=== PATIENT | female | born 1965 | race African-American/Black ===

== ENCOUNTER → 2018-01-27 | Outpatient (CLI) | payer OTHER ==
--- NOTE | 2018-01-27 14:45 | RAD ---
DATE: 01/27/2018 EXAM: DIGITAL SCREEN BILAT W/CAD HISTORY: Routine screening COMPARISON: 12/17/2013 This study was interpreted with the benefit of Computerized Aided Detection (CAD). The breast parenchyma shows scattered fibroglandular densities. Breast parenchyma level B. FINDINGS: No new or enlarging breast densities are seen. Scattered benign type calcifications are present. No suspicious microcalcifications have developed. IMPRESSION: Stable mammograms without evidence of malignancy. BI-RADS CATEGORY: 2 BENIGN FINDING(S) RECOMMENDED FOLLOW-UP: 12M 12 MONTH FOLLOW-UP PQRS compliance statement: Patient information was entered into a reminder system with a target due date for the next mammogram. Mammography is a sensitive method for finding small breast cancers, but it does not detect them all and is not a substitute for careful clinical examination. A negative mammogram does not negate a clinically suspicious finding and should not result in delay in biopsying a clinically suspicious abnormality. "Our facility is accredited by the [employer] Mammography Program."
== END | disposition home or self-care (01) ==
LOC: MAMMO 07:55
PROVIDERS: ATTEND Family Medicine
DX: Z12.31 Encounter for screening mammogram for malignant neoplasm of breast (principal)
CPT/HCPCS: 77067

== ENCOUNTER → 2019-03-16 | Outpatient (CLI) | payer OTHER ==
--- NOTE | 2019-03-16 12:54 | RAD ---
Indication: Left wrist pain. TECHNIQUE: 3 views of the left wrist COMPARISON: None Findings/ impression: No acute fracture or dislocation. No significant arthritic process. Electronically signed by: Adalberto Gomez DO (03/16/2019 12:51 PM) [facility]
== END | disposition home or self-care (01) ==
LOC: DXRAD 09:18
PROVIDERS: ATTEND Orthopaedic Surgery Sports Medicine
DX: M25.532 Pain in left wrist (principal)
CPT/HCPCS: 73110

== ENCOUNTER → 2020-07-30 | Outpatient (CLI) | payer OTHER ==
--- NOTE | 2020-07-30 15:30 | RAD ---
EXAM: Lumbar spine, 3 views. HISTORY: Pain. COMPARISON: None. FINDINGS: 3 views of the lumbar spine are obtained. There are 6 nonrib-bearing lumbar vertebral segments, a normal variant. There is no listhesis. The vertebral bodies are normal in height. There is mild multilevel endplate remodeling. There is facet arthropathy predominantly at the mid lower lumbar levels. There is disc space narrowing at the lumbosacral junction. IMPRESSION: 1. Multilevel degenerative change, primarily the lower lumbar levels. 2. No acute osseous finding Electronically signed by: Martha Quintana MD (07/30/2020 3:28 PM) [facility]
== END ==
LOC: RAD 08:57
PROVIDERS: ATTEND Optometrist
DX: M47.816 Spondylosis without myelopathy or radiculopathy, lumbar region (principal); G89.29 Other chronic pain
CPT/HCPCS: 72100